=== PATIENT | female | born 1945 | race Caucasian/White ===

== ENCOUNTER 2018-05-02 09:32 | Outpatient (CLI) | payer MEDICARE | END 2018-05-02 09:33 | disposition home or self-care (01) | LOC: SC 09:32 | PROVIDERS: ATTEND Internal Medicine Pulmonary Disease | DX: R53.83 Other fatigue (principal); R06.83 Snoring | CPT/HCPCS: 99203; G0463; 99212 ==

== ENCOUNTER 2020-12-01 13:33 | Outpatient (CLI) | payer MEDICARE ==
--- OUTSIDE RECORDS SUMMARY | 2020-12-10 21:30 | EXTERNAL MEDICAL SUMMARY RPT | Continuity of Care Document ---
:1945 Demographics Phone Unavailable Preferred Language Upper Sorbian Marital Status Unknown Rastafari Affiliation Unknown Race Unknown Ethnic Group Unknown Author Organization [facility] Address [address] [id number] Phone Care Team Providers Name Role Phone Ca Unavailable Unavailable Mank Unavailable Unavailable Problems date description facility 20201119 [place] [facility] 20201119 Cerebral edema [facility] 20201119 Compression of brain [facility] [id number] Mild intermittent asthma, uncomplicated [facility] [id number] Other abnormal findings on diagnostic [facility] imaging of central nervous system [id number] Other specified disorders of brain [facility] Medications date description facility 20201201 Dexamethasone 2 MG Oral Tablet [facility] 20201201 Dexamethasone 2 MG Oral Tablet [facility] 20201209 Levetiracetam 1000 MG Oral Tablet [facility] 20201210 Aspirin 81 MG Enteric Coated Tablet [facility] 20201210 atorvastatin 20 MG Oral Tablet [facility] Procedures date description facility 20201119 [facility] date description facility 20201119 [facility] date description facility 20201201 [facility] date description facility 20201201 [facility] date description facility 20201209 [facility] date description facility 20201209 [facility] date description facility 20201209 [facility] Vital Signs date measurement value source 20201119 BP_diastolic 63 mm[Hg] 11304843 BP_systolic 137 mm[Hg] [id number] heart_rate 69 /min [id number] respiration_rate 25 /min 20201119 temperature_metric 36.5 C 20201119 temperature_standard 97.7 F 20201119 weight_metric 28.21 kg 20201119 weight_standard 62.19 lb date measurement value source 20201201 BMI 20.9 kg/m2 20201201 BMI 20.9 kg/m2 20201201 BP_diastolic 84 mm[Hg] 20201201 BP_systolic 188 mm[Hg] 20201201 heart_rate 73 /min 20201201 height_metric 167.64 cm 20201201 height_standard 66 in 20201201 respiration_rate 18 /min 20201201 temperature_metric 37.11 C 20201201 temperature_standard 98.8 F 20201201 weight_metric 26.75 kg 20201201 weight_standard 58.97 lb date measurement value source 20201209 height_metric 170.18 cm 20201209 height_standard 67 in 20201209 weight_metric 23.72 kg 20201209 weight_standard 52.3 lb date measurement value source 20201210 BP_diastolic 64 mm[Hg] 20201210 BP_diastolic 70 mm[Hg] 20201210 BP_systolic 108 mm[Hg] 20201210 BP_systolic 114 mm[Hg] 20201210 heart_rate 59 /min 20201210 heart_rate 83 /min 20201210 respiration_rate 16 /min 20201210 respiration_rate 19 /min 20201210 temperature_metric 36.33 C 20201210 temperature_metric 36.39 C 20201210 temperature_standard 97.4 F 20201210 temperature_standard 97.5 F 20201210 weight_metric 23.59 kg 20201210 weight_standard 52 lb Social History date description facility [id number]
== END 2020-12-01 13:34 | disposition short-term general hospital (02) ==
LOC: EMS 13:33
DX: R51.9 Headache, unspecified (principal); R41.0 Disorientation, unspecified
CPT/HCPCS: A0425; A0429

== ENCOUNTER 2020-12-09 | Outpatient (CLI) | payer MEDICARE | END 2020-12-09 15:42 | disposition short-term general hospital (02) | CPT/HCPCS: A0425; A0429 ==

== ENCOUNTER 2021-12-31 12:48 | Outpatient (CLI) | payer MEDICARE | END 2021-12-31 12:49 | disposition short-term general hospital (02) | LOC: EMS 12:48 | DX: R55 Syncope and collapse (principal); R47.81 Slurred speech; R15.9 Full incontinence of feces | CPT/HCPCS: A0425; A0427 ==

== ENCOUNTER 2022-10-09 14:12 | Outpatient (CLI) | payer MEDICARE | END 2022-10-09 14:13 | disposition short-term general hospital (02) | LOC: EMS 14:12 | DX: R53.83 Other fatigue (principal) | CPT/HCPCS: A0425; A0429 ==

== ENCOUNTER 2022-10-18 02:21 | Outpatient (CLI) | payer MEDICARE | END 2022-10-18 02:22 | disposition left against medical advice (07) | LOC: EMS 02:21 | DX: R41.0 Disorientation, unspecified (principal) ==

== ENCOUNTER 2022-11-16 14:53 | Outpatient (CLI) | payer MEDICARE | END 2022-11-16 23:59 | disposition EMS.NT | LOC: EMS 14:53 | DX: Z03.89 Encounter for observation for other suspected diseases and conditions ruled out (principal) ==

== ENCOUNTER 2023-01-02 10:44 | Outpatient (CLI) | payer MEDICARE | END 2023-01-02 23:59 | disposition EMS.NT | LOC: EMS 10:44 | DX: R26.81 Unsteadiness on feet (principal) ==

== ENCOUNTER 2023-01-13 11:32 | Outpatient (CLI) | payer MEDICARE | END 2023-01-13 23:59 | disposition short-term general hospital (02) | LOC: EMS 11:32 | DX: R55 Syncope and collapse (principal); R53.1 Weakness; R11.0 Nausea | CPT/HCPCS: A0425; A0429 ==

== ENCOUNTER 2023-01-27 11:04 | Outpatient (CLI) | payer MEDICARE | END 2023-01-27 23:59 | disposition EMS.NT | LOC: EMS 11:04 | DX: R42 Dizziness and giddiness (principal) ==

== ENCOUNTER 2023-03-17 08:08 | Outpatient (CLI) | payer MEDICARE | END 2023-03-17 23:59 | disposition short-term general hospital (02) | LOC: EMS 08:08 | DX: R53.83 Other fatigue (principal); R09.89 Other specified symptoms and signs involving the circulatory and respiratory systems | CPT/HCPCS: A0425; A0429 ==

== ENCOUNTER 2023-07-23 17:30 | Outpatient (CLI) | payer MEDICARE | END 2023-07-23 17:45 | disposition home or self-care (01) | LOC: LAB.N 17:30 | PROVIDERS: ATTEND Registered Nurse | DX: R41.82 Altered mental status, unspecified (principal); R50.9 Fever, unspecified; R35.0 Frequency of micturition; Z20.822 Contact with and (suspected) exposure to COVID-19 | CPT/HCPCS: 87086 ==

== ENCOUNTER 2023-08-07 13:41 | Outpatient (CLI) | payer MEDICARE | END 2023-08-07 23:59 | disposition short-term general hospital (02) | LOC: EMS 13:41 | DX: I10 Essential (primary) hypertension (principal); R53.1 Weakness | CPT/HCPCS: A0425; A0429 ==